=== PATIENT | male | born 1995 | race Caucasian/White ===

== ENCOUNTER → 2024-05-26 10:02 | Outpatient (REF) | payer OTHER, SELFPAY | LOC: HWRAD 10:02 | PROVIDERS: ATTENDING PHYSICIAN Chiropractor | DX: M54.51 Vertebrogenic low back pain (principal) | CPT/HCPCS: 72110 ==

== ENCOUNTER 2024-05-28 15:01 | Inpatient (IN) | payer OTHER, SELFPAY ==
[2024-05-27 16:45] VITALS: BP 155/100; BMI 33.1
--- NOTE | 2024-05-27 17:10 | ED.GENMED ---
History of Present Illness
General
Chief Complaint: Back Pain
Source: patient
Exam Limitations: none
Time Seen by Provider: 05/27/24 16:53
Nursing documentation reviewed up to this point in time: agreed with
History of Present Illness
History of Present Illness:
Patient to ED with complaint of low back pain. States he slipped on ice and fell approx 2-3 weeks ago. Had some pain initially but began to improve. Last week pain returned. 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
after driving. He was treated by chiroporactor today. States this afternoon he was trying to go down steps but felt he couldnt. Turned to sit and felt a pop and severe pain across low back. He has been unable to walk due to pain in his back.
Denies any bowel or bladder issues. He is able to move lower extremities. States sensation is equal bilaterally. Friend called 911 and he was transported here. He was given toradol by EMS and he reports no improvement in pain.
Past History
Past History
ED Past Medical History: None
ED Past Surgical History: None
Review of Systems
Review of Systems
Allergies reviewed?: Yes
All Other Systems: ROS reviewed and negative except as documented in HPI and ROS
Constitutional: Reports no symptoms
EENT: Reports no symptoms
Respiratory: Reports no symptoms
Cardiac: Reports no symptoms
ABD/GI: Reports no symptoms
: Reports no symptoms
Musculoskeletal: Reports back pain
Skin: Reports no symptoms
Neurological: Reports no symptoms
Psychiatric: Reports no symptoms
Phy Exam
General Physical Exam
General Presentation: moderate distress
General age: appears stated age
General Skin: warm and dry
General Habitus: normal
General Mental: alert
General Hydration: appears well hydrated
Cardiovascular Exam
Cardiovascular Exam: regular rate/rhythm and no edema
Pulmonary Exam
Pulmonary Exam: no respiratory distress and chest non tender
Gastrointestinal Exam
Gastrointestinal Exam: normal bowel sounds and non tender
Musculoskeletal Exam
Musculoskeletal Exam: back pain (bilateral low back pain), neuro vasc intact and other (Negative straight leg raise. Able to lift legs off stretcher. Able to bend legs at knees. Equal strength and senstation bilaterally)
Skin Exam
Skin Exam: normal color, warm/dry and no rash
Psychiatric Exam
Psychiatric Exam: normal mood/affect
Course
Orders/Labs/Results
Orders:
Orders
05/27/24 17:08
HYDROmorphone [Dilaudid] 0.5 mg IV NOW STA
Ondansetron Injectable [Zofran] 4 mg IV NOW STA
05/27/24 18:03
Lumbar Spine Complete, 4 View [CR Lumbar Spine Comp Min 4 Vw*] Urgent
Comment:
Reason For Exam: pain
05/27/24 20:02
HYDROmorphone [Dilaudid] 0.5 mg IV NOW STA
05/27/24 20:06
Dexamethasone Sod Phosphate [Decadron] 10 mg IV NOW STA
05/27/24 21:14
Ketorolac [Toradol] 30 mg IV NOW STA
05/27/24 22:11
Baclofen [Lioresal] 10 mg PO NOW STA
05/27/24 22:12
Admit/Transfer Patient As Directed
Co-Sign Provider:
Level of Care: Observation services
Assign to:: Medical/Surgical
Physician / Group: Carly Delgado
Diagnosis: acute low back pain
PRN Pain Medication Management As Directed
May give lesser potent ordered pain med per pt: Yes
preference::
Protocol:: Medication orders for pain may be administered in a
manner that supports deferring to patient preference
when the pt is:
- Requesting an ordered lesser potent pain medication.
Least to most potent pain medications are defined
as: acetaminophen < NSAID < tramadol < opioids
(morphine, oxycodone, hydromorphone).
- Requesting a lesser dose of the same medication IF
ORDERED.
- Requesting a less intrusive route of administration
if both routes are prescribed by the provider (PO <
IV).
05/27/24 22:13
Code Status As Directed
Resuscitation Status: Full Code
05/27/24 22:33
BMP [Basic Metabolic Panel] Urgent
CBC/With Diff [Complete Blood Count/With Diff] Urgent
Magnesium Urgent
05/27/24 23:41
Acetaminophen [Tylenol] 650 mg PO Q4HPRN PRN
Baclofen [Lioresal] 10 mg PO TIDPRN PRN
Bisacodyl [Dulcolax] 10 mg RECTAL [id number] PRN
Docusate W/Senna [Senokot-S] 1 tablet PO BIDPRN PRN
HYDROmorphone [Dilaudid] 0.5 mg IV Q3HPRN PRN
Polyethylene Glycol Powder [Miralax] 17 grams PO DAILYPRN PRN
05/27/24 23:41
Activity As Directed
Activity Level: As Tolerated
With Assistance
K pad [Heat Application] As Directed
Apply heat therapy device to (location):: lower back
Device Frequency setting:: 20 minute cycles
Device temperature setting:: Moderate: 100 F (38 C)
Pneumatic Compression Sleeves As Directed
Type: Knee high
Vital Signs As Directed
Frequency: Per unit guidelines
DX Deep Vein Thrombosis Video Routine
05/28/24 00:22
Pt Screening Request from Eren Routine
05/28/24 Breakfast
Regular
At Your Request: Full Participation
05/28/24 07:53
MR Cervical Spine Without Routine
Comment:
Reason For Exam: fall, difficulty ambulation
Recent pill cam endoscopy?: No
MR Thoracic Spine Without Routine
Comment:
Reason For Exam: fall, inability to walk
Recent pill cam endoscopy?: No
05/28/24 08:00
Ibuprofen [Motrin] 800 mg PO TID
Lidocaine [Lidocaine 4% Patch] 1 patch TOPICAL DAILY
Apply Lidocaine patch(s) to:: lower back
05/28/24 08:06
MR Lumbar Without Contrast Routine
Reason For Exam: acute severe low back pain
Recent pill cam endoscopy?: No
05/28/24 12:18
Ot Eval And Treat Routine
Pt Eval And Treat Routine
Activity Level: With Assistance
05/28/24 14:54
Oxycodone [Roxicodone] 10 mg PO Q4HPRN PRN
Oxycodone [Roxicodone] 5 mg PO Q4HPRN PRN
05/28/24 14:55
Naloxone [Narcan] 0.04 mg IV Q2MPRN PRN
05/28/24 15:00
Prednisone [Deltasone] 40 mg PO DAILY
05/28/24 15:08
HYDROmorphone [Dilaudid] 0.5 mg IV Q3HPRN PRN
05/28/24 15:09
Metaxalone [Skelaxin] 800 mg PO Q8HPRN PRN
05/28/24 15:15
Gabapentin [Neurontin] 200 mg PO ONCE ONE
05/28/24 20:00
Gabapentin [Neurontin] 200 mg PO BID
Remove Patch [Remove Lidocaine Patch] See Dose Instructions REMOVE DAILY@1999
05/29/24 08:00
Polyethylene Glycol Powder [Miralax] 17 grams PO DAILY
Abnormal Lab Results
05/27/24
22:33
WBC 10.9 H 10^3/uL
(4.8-10.8)
Abs Immat Gran (auto) 0.1 H 10^3/uL
(0-0.05)
Absolute Neuts (auto) 9.6 H 10^3/uL
(1.4-6.5)
Absolute Lymphs (auto) 1.0 L 10^3/uL
(1.2-3.4)
Neutrophils % 88.2 H %
(42.2-75.2)
Lymphocytes % 8.9 L %
(20.5-51.1)
Glucose 107 H mg/dl
(70-99)
05/27/24 22:33
05/27/24 22:33
Vital Signs
Initial and Last Documented VS:
Initial Vital Signs
Temp Pulse Resp BP Pulse Ox
98.8 F 84 16 155/100 99
05/27/24 16:45 05/27/24 16:45 05/27/24 16:45 05/27/24 16:45 05/27/24 16:45
Last Documented Vital Signs
Temp Pulse Resp BP Pulse Ox
98.6 F 93 14 141/88 97
05/28/24 15:06 05/28/24 15:06 05/28/24 15:06 05/28/24 15:06 05/28/24 15:06
*Radiology
Radiology exam reviewed: radiology read reviewed
*Pulse Oximetry
Patient hypoxic: no
*Critical Care Note
Total Time (30-74mins, 75-104mins- exclusive of procedures): Not Applicable
Update Note
Update Note:
Patient to ED with complaint of worsening low back pain after chiropractic adjustement. He fell 2-3 weeks ago after slipping on ice. INjuryed low back during fall but reports improvement over time. Pain began to worsen again approx 1 week ago.
Had adjustment by chiropractor today. States [employer] he felt a pop and severe pain to low back. On exam he was initially able to bend at knees, raise legs off stretcher, turn independently. Unable to accurately assess reflexes as he remains guarded.
Senesation intact. No bowel or bladder issues. Now states pain is worse despite Dilaudid, toradol, decadron. He does not feel that he will be able to ambulate/transfer, care for self at home. Will admit to hospitalist service.
ED Attending Note
-
Portions of this chart may have been created with voice recognition software.� Occasional wrong word or��sound alike� substitutions may have occurred due to the inherent limitations of voice recognition software.
Discharge Plan
Departure
Patient Disposition: Admit
Date of Disposition: 05/27/24
Time of Disposition: 21:30
Presentation/result/management discussed w/ accepting MD/DO: Hospitalist
Condition: Fair
Covid-19: Not Applicable
Discharge Problem:
Intractable back pain
Interventions
Interventions:
*Risk Screen - Suicide Last Done: 05/27/24 16:45
*General Assessment Last Done: 05/27/24 16:45
*Neglect/Abuse Screening Last Done: 05/27/24 16:45
*ED- Fall Risk Assessment Last Done: 05/27/24 16:45
*ED COVID-19 Vaccine History Last Done: 05/27/24 16:45
*Nursing Disposition Last Done: 05/27/24 23:32
ED-Musculoskeletal Assessment Last Done: 05/27/24 16:45
Discharge Date and Time
Discharge Date/Time: 05/27/24 23:32
Musculoskeletal Injury Exam
Musculoskeletal Injury Exam
Bilateral Lower Back:
Pain with Movement?: Moderate
Tender to palpation?: Moderate
Soft tissue swelling?: None
External deformity and angulation?: None
Joint effusion?: None
Contusion?: None
Hematoma-local bleeding into tissue?: None
Strain- Sprain- Tear (Connective tissue injury)?: Moderate
Crepitus with movement?: No
Joint instability?: No
Malalignment/deformity?: No
Range of motion: Limited
Distal skin color and temperature: normal-warm & good color
Capillary Refill: normal
Normal distal neurovascular exam?: Yes
[2024-05-27 17:19] VITALS: BP 135/80
[2024-05-27] MEDS: DILAUDID 0.5 MG IV ×3 (17:21→23:52)
[2024-05-27] MEDS: ZOFRAN 4 MG IV (17:21)
[2024-05-27 18:00] VITALS: BP 138/81
[2024-05-27 19:00] VITALS: BP 122/66
[2024-05-27] MEDS: DECADRON 10 MG IV (20:09)
[2024-05-27] MEDS: TORADOL 30 MG IV (21:24)
--- NOTE | 2024-05-27 21:53 | HPS.HSE ---
Family Physician
-
Family Physician: * NONE
Chief Complaint
-
back pain
History of Present Illness
Mr. Raffaele Alexander is a 28 yo man without significant past medical history, recent back injury presents to the ER with worsening back pain.
Patient slipped on ice and fell 2-3 weeks ago. Pain initially improved but then returned last weekend after a day of work. Since Satuday it has progressed. He saw a chiropractor earlier today. Following appointment he had difficulty going down
steps, turned to sit and felt a pop followed by severe pain across his lower back. He denies bowel or bladder changes. No saddle anesthesia. No LE weakness. He is not able to stand up given the pain.
No recent fevers/chills. No chest pain or shortness of breath. No abdominal pain. No nausea/vomiting/diarrhea. No LE swelling.
Medical History
Past Medical History
Past Medical History: Reports None
Past Surgical History: Reports None
Social History
Tobacco: Vaping
Alcohol: Occasional
Family History
Family History: Not pertinent
Allergies / Home Medications
Allergies reflects when Allergies were last updated in [facility].
Home Medications with original date entered in [facility]
Allergy/Medication List:
Allergies
Allergy/AdvReac Type Severity Reaction Status Date / Time
NKA - No Known Allergies Allergy Uncoded 07/17/07 16:23
Home Medications
ibuprofen 200 mg tablet 600 mg PO Q6HPRN PRN mild pain 05/27/24
naproxen sodium 220 mg tablet (Aleve) 440 mg PO BIDPRN PRN mild pain 05/27/24
Review of Systems
-
History Source: Patient
A 12 point ROS was completed and negative except as noted: Yes
Physical Exam
Vital Signs
Vital Signs
Temp Pulse Resp BP Pulse Ox
98.8 F 68 18 122/66 96
05/27/24 16:45 05/27/24 19:04 05/27/24 19:04 05/27/24 19:00 05/27/24 19:30
Physical Exam
General: Other (appears in pain )
Respiratory: Clear; No Wheezes
Cardiac: S1/S2 and Regular Rhythm
GI: Soft and Non Tender
Musculoskeletal: Other (no mid-line tenderness, + paraspinal tenderness )
Skin: Warm and Dry; No Rash
Neuro: AO x 3 and Other (5/5 strength b/l foot plantar and dorsiflexion; patient states it hurts too much to lift leg off bed )
Psych: Calm
Data Reviewed
-
Diagnostic Radiology: Report Reviewed by me
Lab Data: Labs Reviewed by me
Impression/Plan
-
Mr. Raffaele Alexander is a 28 yo man without significant past medical history, recent back injury presents to the ER with worsening back pain.
Triage VS: T 98.8, P 84, RR 16, BP 155/100, SpO2 99%
Lumbar X-Ray:
IMPRESSION: Vertebral body heights are maintained with no evidence for fracture.
Mild retrolisthesis at L5-S1, measuring approximately 5 mm. Minimal anterior spondylosis at L4-5 and L5-S1, stable from yesterday's exam.
If there are persistent clinical symptoms and further imaging evaluation is desired, consider MRI.
MAR: IV Dilaudid x 2, IV Toradol, IV Decadron, Zofran
Severe low back pain
-patient without bowel/bladder changes or saddle anesthesia; exam limited 2/2 pain but has 5/5 strength b/l foot plantar flexion and dorsiflexion strength
-given degree of pain and immobility, admit to observation
-MR Lumbar spine ordered for tomorrow AM
-pain control with: Lidocaine patch, heat, trial of Baclofen (one dose ordered now then ordered as PRN); standing TID motrin 800mg (with food); IV Dilaudid PRN
-*admission labs now ordered - will follow up
DVT PPx SCD ( in case KARTHIKEYAN recommended post MRI)
FULL CODE
[2024-05-27] MEDS: LIORESAL 10 MG PO (22:27)
[2024-05-27 22:43] LABS: % Basophils 0.1 % (0-2); % Eosinophils 0.4 % (0-6); % Immature Granulocytes 0.5 % (0-0.5); % Lymphocytes 8.9 % (20.5-51.1); % Monocytes 1.9 % (1.7-9.3); % Neutrophils 88.2 % (42.2-75.2); Absolute Immature Granulocytes 0.1 10^3/uL (0-0.05); Absolute Monocytes 0.2 10^3/uL (0.1-0.6); Absolute Neutrophils 9.6 10^3/uL (1.4-6.5); Hematocrit 45.2 % (39.0-52.0); Hemoglobin 16.1 g/dL (13.0-18.0); Mean Corp Hgb Conc. 35.6 g/dL (33.0-37.0); Mean Corpuscular Hgb 30.3 pg (27.0-31.0); Mean Platelet Volume 9.4 fL (7.4-10.4); Nucleated Red Blood Cells % 0 % (-); Platelet Count 184 10^3/uL (130-400); Red Blood Cell Count 5.32 10^6/uL (4.70-6.10); Red Cell Dist. Width 11.7 % (11.5-14.5); White Blood Cell Count 10.9 10^3/uL (4.8-10.8)
[2024-05-27 23:02] LABS: Blood Urea Nitrogen 17 mg/dl (9-20); Calcium 9.4 mg/dl (8.4-10.2); Carbon Dioxide 23 mmol/L (22-30); Chloride 104 mmol/L (98-107); Estimated Creatinine Clearance > 125 ml/min; Glucose 107 mg/dl (70-99); Magnesium 1.8 mg/dl (1.6-2.3); Potassium 4.7 mmol/L (3.5-5.1); Sodium 136 mmol/L (135-145); eGFR > 60.00
[2024-05-27 23:49] VITALS: BP 160/92
--- NOTE | 2024-05-28 00:38 | PTCARENOTE ---
Pt admitted to rm 319-2. Pt aaox3 and c/o 10/10 pain in lower back, PRN Dilaudid given (see MAR). Pt oriented to room, call bose within reach, and plan of care ongoing.
[2024-05-28] MEDS: DILAUDID 0.5 MG IV ×3 (06:13→12:46)
[2024-05-28 07:16] VITALS: BP 128/72
[2024-05-28] MEDS: MOTRIN 800 MG PO ×3 (08:04→22:33)
[2024-05-28] MEDS: LIDOCAINE 4% PATCH TOPICAL (08:10)
--- NOTE | 2024-05-28 12:45 | W.PN.HOSP.TC ---
Today's Communication/Plan
-
see note
Assessment / Plan
Assessment / Plan
MRI L spine
L1-L2: No spinal canal or neuroforaminal stenosis.
L2-L3: No spinal canal or neuroforaminal stenosis.
L3-L4: No spinal canal or neuroforaminal stenosis.
L4-L5: A central disc protrusion indents the ventral thecal sac. No spinal canal or neuroforaminal stenosis.
L5-S1: A right posterior disc protrusion marginates the descending right S1 nerve root without evidence for significant impingement, and contributes to mild right neuroforaminal stenosis. No spinal canal stenosis or left neuroforaminal stenosis.
Lumbar radiculopathy
Lumbar disc prolapse
Intractable back pain
Ambulatory dysfunction
Spasms
-MR C/T spine normal
-MR L spine findings as above
-maintain on oral oxycodone with dilaudid for breakthrough pain
-gabapentin 200mg/bid added for neuropathic pain
-Got dexa 10mg in er. maintain on 3 days of prednisone 40mg/d
-Provide stool softeners to avoid narcs related constipation
-Narcan prn ordered to use as patient is opioid naive
-Skelaxin for spasms
-PT/OT as tolereated
DVT PPx SCD ( in case KARTHIKEYAN recommended post MRI)
FULL CODE
Total time spent : 52 mins
Anticipated Discharge: 24 - 48 hours
Subjective/Interval History
-
Date of Service: May 28, 2024
still have pain
difficulty getting around
no incontinence
Objective Data
-
Vital Signs:
Vital Signs
Temp Pulse Resp BP Pulse Ox
97.5 F 74 16 128/72 95
05/28/24 07:16 05/28/24 07:16 05/28/24 07:16 05/28/24 07:16 05/28/24 07:16
Review of Systems
-
Respiratory: Reports No Symptoms
Cardiac: Reports No Symptoms
Abdomen/GI: Reports No Symptoms
Physical Exam
-
General: No Apparent Distress
HEENT: Negative Oxygen
Neuro: Awake, Alert, Oriented and No Motor Deficits
[2024-05-28 15:06] VITALS: BP 141/88
[2024-05-28] MEDS: NEURONTIN 200 MG PO ×2 (15:42→20:02)
[2024-05-28] MEDS: DELTASONE 40 MG PO (15:42)
[2024-05-28] MEDS: ROXICODONE 10 MG PO ×2 (15:48→20:09)
--- NOTE | 2024-05-28 16:22 | CM ---
Addendum entered by Niki Aleman 05/28/24 16:31:
Patient switched to inpatient, patient made aware that he is now inpatient.
Original Note:
service delivery manager reviewed patient's chart and met with patient and patient lives with his fiancee in a split level home, patient is independent with adl's and ambulation, no dme, patient drives, patient was admitted under OBS and OBS letter explained to
patient not signed.
PCP: None
Pharmacy: [facility].
Plan; To follow with progress and assist with discharge planning.
[2024-05-28 23:20] VITALS: BP 127/64
[2024-05-29 07:05] VITALS: BP 153/72
[2024-05-29] MEDS: NEURONTIN 200 MG PO (07:17)
[2024-05-29] MEDS: LIDOCAINE 4% PATCH 1 PATCH TOPICAL (07:17)
[2024-05-29] MEDS: DELTASONE 40 MG PO (07:17)
[2024-05-29] MEDS: MOTRIN 800 MG PO (07:17)
[2024-05-29] MEDS: MIRALAX 17 GRAMS PO (07:18)
[2024-05-29] MEDS: ROXICODONE 10 MG PO (08:43)
[2024-05-29 10:11] VITALS: BP 163/94; PULSE 87
[2024-05-29 11:36] VITALS: BP 163/94; PULSE 87
[2024-05-29 12:08] VITALS: BP 148/89
--- NOTE | 2024-05-29 14:40 | W.PN.HOSP.TC ---
Today's Communication/Plan
-
d/c home with HH
Assessment / Plan
Assessment / Plan
MRI L spine
L1-L2: No spinal canal or neuroforaminal stenosis.
L2-L3: No spinal canal or neuroforaminal stenosis.
L3-L4: No spinal canal or neuroforaminal stenosis.
L4-L5: A central disc protrusion indents the ventral thecal sac. No spinal canal or neuroforaminal stenosis.
L5-S1: A right posterior disc protrusion marginates the descending right S1 nerve root without evidence for significant impingement, and contributes to mild right neuroforaminal stenosis. No spinal canal stenosis or left neuroforaminal stenosis.

Lumbar radiculopathy
Lumbar disc prolapse
Intractable back pain
Ambulatory dysfunction
Spasms
-MR C/T spine normal
-MR L spine findings as above
-maintain on oral oxycodone with dilaudid for breakthrough pain
-gabapentin 200mg/bid added for neuropathic pain
-Got dexa 10mg in er. maintain on 3 days of prednisone 40mg/d
-Provide stool softeners to avoid narcs related constipation
-Narcan prn ordered to use as patient is opioid naive
-Skelaxin for spasms
-PT/OT cleared for home PT
DVT PPx SCD ( in case KARTHIKEYAN recommended post MRI)
FULL CODE
More than 30 minutes spent in discharge including
Final examination of the patient
Summarizing hospital stay
Instructions for continuing care to all relevant caregivers
Preparation of discharge records, prescriptions, and referral forms
Total time spent (in minutes): 38 mins
Anticipated Discharge: Today
Subjective/Interval History
-
Date of Service: May 29, 2024
Continues to have pain
Able to get around with walker
No other acute issues reported
Objective Data
-
Vital Signs:
Vital Signs
Temp Pulse Resp BP Pulse Ox
98.0 F 84 16 148/89 97
05/29/24 12:08 05/29/24 12:08 05/29/24 12:08 05/29/24 12:08 05/29/24 12:08
I&O
05/28/24 05/29/24 05/30/24
06:59 06:59 06:59
Intake Total 480 / 480 530 / 530
Output Total 1100 / 1100
Balance -620 / -620 530 / 530
Review of Systems
-
Respiratory: Reports No Symptoms
Cardiac: Reports No Symptoms
Abdomen/GI: Reports No Symptoms
Physical Exam
-
General: Obese
HEENT: Negative Oxygen
Neuro: Awake, Alert, Oriented and No Motor Deficits
--- NOTE | 2024-05-29 17:13 | W.DCSUMMARY ---
Discharge Summary
Discharge Data
Date of Admission: 05/28/24
Date of Discharge: 05/29/24
-
Pending Results: No
Hospital Course
Discharging Physician : Dr Mateo Lantigua
Disposition : To home
Primary care physician : None
Principal Discharge diagnosis :
Lumbar disc prolapse
Lumbar radiculopathy
Intractable back pain
Ambulatory dysfunction
Chronic Discharge diagnosis :
None
Hospital Course :
Patient is a 28-year-old male with no significant past medical history came to ER after having new onset of significant lower back pain and inability to ambulate. Patient had slipped and fell on ice to 3 weeks ago when initially had pain which
improved with [id number] medication and conservative management. Patient was walking to bathroom to 3 days back when all of a sudden patient heard a pop in the back with started to having significant lower back pain. Patient went to
chiropractor for spinal adjustment as well. Unfortunately symptoms persisted and patient came to ER for further evaluation. Patient denied of having any bladder or bowel dysfunction. A lumbar spinal x-ray done in hospital 3 days back was not
showing any acute fracture. Patient was admitted for pain control with IV pain medication and physical therapy evaluation. An MRI C/T/L-spine was done with patient showing lumbr disc prolpase at l5-s1 level. Patient was started on multitude of
medication with which patient had some improvement on symptoms. Patient was able to participate with physical therapy and able to get around with walker. Patient was discharged to home at this point with outpatient therapy and plan to follow-up
with pain specialist/orthopedic surgeon in office.
Important imaging findings :
None
Procedure findings :
None
Discharge Plan
-
Patient Disposition: Home with Home Care
Discharge Diagnosis/Procedures: Lumbar radiculopathy, Prolpased disc
Condition: Fair
Diet: Regular
Activity: As tolerated
Additional Activity: No strenous activity or lifting heavy things for 2 weeks
Driving Restrictions: No driving for 24 hours
Bathing Restrictions: OK to Shower
Referrals:
NONE,* [Family Provider] -
Aamir Forbes MD [Active] - in one to two weeks
Prescriptions:
New
polyethylene glycol 3350 17 gram Powder In Packet
17 g PO DAILY Qty: 15 0RF
ibuprofen 800 mg Tablet
800 mg PO TID Qty: 9 0RF
Rx Instructions:
DO NOT TAKE MORE THEN 3 DAYS
prednisone 20 mg Tablet
40 mg PO DAILY Qty: 6 0RF
oxycodone 10 mg Tablet
10 mg PO Q4HPRN PRN (Reason: severe pain) Qty: 20 0RF
Rx Instructions:
Take Half tablet if moderate pain
acetaminophen [Tylenol Extra Strength] 500 mg tablet
1,000 mg PO Q6H Qty: 90 0RF
bisacodyl [Dulcolax (bisacodyl)] 5 mg tablet,delayed release (DR/EC)
10 mg PO HS PRN (Reason: Constipation) 5 Days Qty: 14 0RF
gabapentin 400 mg tablet
200 mg PO BID Qty: 15 0RF
Discontinued
naproxen sodium [Aleve] 220 mg Tablet
440 mg PO BIDPRN PRN (Reason: mild pain)
ibuprofen 200 mg Tablet
600 mg PO Q6HPRN PRN (Reason: mild pain)
Discharge Orders:
Discharge Patient (As Directed); Ordered 05/29/24
Ordered By: Mateo Lantigua
Discharge Date and Time
Discharge Date/Time: 05/29/24 12:20
Print Language: POLISH
== END 2024-05-29 12:20 | disposition home or self-care (01) | DRG 552 ==
LOC: 3 WEST ACU 15:01
PROVIDERS: ADMITTING PHYSICIAN Student in an Organized Health Care Education/Training Program; ATTENDING PHYSICIAN Hospitalist; EMERGENCY PHYSICIAN Emergency Medicine
DX: M51.16 Intervertebral disc disorders with radiculopathy, lumbar region (principal); M43.17 Spondylolisthesis, lumbosacral region
CPT/HCPCS: 72110; 72141; 72146; 72148; 80048; 83735; 85025; 96374; 96375; 96376; 97110; 97162; 97165; 99284